=== PATIENT | female | born 1950 | race African-American/Black ===

== ENCOUNTER 2020-06-01 19:28 | Inpatient (IN) | payer MEDICARE, SELFPAY ==
--- NOTE | ~2020-06-01 | CT_ITS ---
EXAMINATION: CTA chest PE protocol EXAM DATE: 06/02/2020 18:51 INDICATION: Pleuritic pain with deep breathing . TECHNIQUE: Spiral CTA of the chest (pulmonary arteries) was performed with 100 cc Omnipaque 350 intr avenous contrast injection. Images were acquired during the pulmonary arterial phase. Coronal maxi mum intensity projection 3D-reconstructions were created by the technologist on dedicated workstation . Axial, coronal and sagittal reformatted images were reviewed. The dose-length product (DLP) for t his examination was 130.26 mGy-cm. The exposure was tailored according to patient size (auto mA exp osure control), and iterative reconstruction (ASIR) was used as additional dose reduction technique. Correlation is made to chest x-ray same date. FINDINGS: There are no pulmonary emboli in the 1st through 3rd order (central and interlobar) pulmon shahram arteries. Some loss of attenuation in the basilar segmental pulmonary arteries due to respirator y motion, but no intraluminal filling defects suspected. No thoracic aortic dissection. There is mo derate amount of patchy bilateral groundglass predominant airspace disease with linear regions of ate lectasis. Most likely acute infectious process. Recommend considering possibility of COVID pneumonia. Less likely acute possibilities include influenza, pulmonary edema or hemorrhage. Some chronic proc esses that can have this appearance include cryptogenic organizing pneumonia, desquamative interstiti al pneumonia, nonspecific interstitial pneumonia, drug toxicity, connective tissue disease. Please cl inically correlate and test as appropriate. There are no pleural or pericardial effusions. Tracheobronchial tree is patent. There is no media stinal, hilar or axillary lymphadenopathy. There is no pneumothorax. Heart normal in size. No e vidence of coronary arterial calcification. Fluid density liver lesions consistent with cysts. The bones are unremarkable. IMPRESSION: 1. Limited segmental evaluation, but no pulmonary emboli are suspected. 2. Moderate amount of patchy bilateral airspace disease suspicious for COVID pneumonia. Reviewed, dictated and finalized at location A. T PRESSER IMPRESSION: 1. Limited segmental evaluation, but no pulmonary emboli are suspected. 2. Moderate amount of patchy bilateral airspace disease suspicious for COVID p neumonia.
--- NOTE | ~2020-06-01 | XR_ITS ---
EXAMINATION: XR chest 1V portable EXAM DATE: 06/01/2020 20:30 INDICATION: Shortness of breath, nausea vomiting and diarrhea. TECHNIQUE: Portable AP frontal chest x-ray was obtained. There is no prior study for comparison. FINDINGS: Patchy bilateral midlung zone and lower lung zone ill-defined acute airspace disease. Most likely acute infectious process, recommend considering COVID pneumonia. The cardiomediastinal silhoue tte is prominent but magnified on this AP technique. There is no pneumothorax suspected. There are no pleural effusions. There are no osseous abnormalities identified. IMPRESSION: Moderate bilateral airspace disease likely pneumonia. Clinical correlation. Reviewed, dictated and finalized at location A. OR LINUX SYSTEMS ADMINISTRATOR IMPRESSION: Moderate bilateral airspace disease likely pneumonia. Clinical jamison elation.
[2020-06-01 19:38] VITALS: BP 184/91; PULSE 82; RESP 21; TEMP 37.2; O2SAT 96
[2020-06-01 19:43] VITALS: PULSE 80
--- NOTE | 2020-06-01 19:43 | ECG_ITS ---
Measurements Intervals [place] Rate: 79 P: 47 HI: 177 QRS: 22 QRSD: 81 T: 51 QT: 355 QTc: 409 Interpretive Statements SINUS RHYTHM VOLTAGE CRITERIA FOR LVH BASELINE WANDER- III, AVF, V3-V6 BORDERLINE ECG Electronically Signed On 06-02-2020 7:25:08 BUYER by Pillo Turner D.O.
--- NOTE | 2020-06-01 19:51 | ED.GENADULT ---
HPI - General Adult General Chief complaint: Shortness of Breath/Dyspnea Stated complaint: Low o2, cough, vomiting, body aches Time Seen by Provider: 06/01/20 19:39 History of Present Illness HPI narrative: Patient is 69-year-old female who presents to emergency department with chief complaint of nausea vomiting cough. Patient reports she has been around individuals who have had COVID-19 and reports she is had symptoms since last . Patient states symptoms are not improved by anything states that she feels weak and feels as though she is dehydrated. Patient reports symptoms are not improved by anything nor they worsened by anything Related Data Allergies Allergy/AdvReac Type Severity Reaction Status Date / Time No Known Allergies Allergy Verified 06/01/20 20:16 Review of Systems Review of Systems: Narrative: A 10 system review of systems was completed on the patient and is negative except for what is stated in the HPI. Nursing and ancillary documentation was reviewed. PMFSH Comments Patient has history of high blood pressure and high cholesterol Social history the patient denies illicit drug use Exam Narrative: Exam Narrative: GENERAL: Well-appearing, well-nourished, and in no acute distress. HEAD: Normocephalic, atraumatic. EYES: PERRLA and EOMI. ENT: Nares clear, no rhinorrhea or epistaxis. Mucous membranes moist. NECK: Supple. CHEST: Clear to auscultation. No respiratory distress. HEART: Regular rate and rhythm. No murmur heard. Normal peripheral pulses. ABDOMEN: Soft, nontender, nondistended, normal active bowel sounds. EXTREMITIES: Normal range of motion. No edema. SKIN: Warm, dry, no rash. NEURO: No focal deficits. Alert and oriented x3. PSYCH: Normal mood and affect. Course Course Emergency Course: Chest x-ray shows evidence of multifocal pneumonia Patient's ABG shows a pH of 7.46 and a PCO2 of 56.6 she has a measured saturation of 88.7. The patient is not on oxygen at home. Patient improves with about 1 L of nasal cannula oxygen. Vital Signs Vital signs: Vital Signs Temperature 37.2 C 06/01/20 19:38 Pulse Rate 82 06/01/20 19:38 Respiratory Rate 21 H 06/01/20 19:38 Blood Pressure 184/91 H 06/01/20 19:38 Pulse Oximetry 96 06/01/20 19:38 Temperature 36.2 C L 06/01/20 20:44 Pulse Rate 91 06/01/20 20:44 Respiratory Rate 18 06/01/20 20:44 Blood Pressure 168/87 H 06/01/20 20:44 Pulse Oximetry 95 06/01/20 20:44 Medical Decision Making Vital Signs Vital Signs: Vital Signs Temperature 37.2 C 06/01/20 19:38 Pulse Rate 82 06/01/20 19:38 Respiratory Rate 21 H 06/01/20 19:38 Blood Pressure 184/91 H 06/01/20 19:38 Pulse Oximetry 96 06/01/20 19:38 Temperature 36.2 C L 06/01/20 20:44 Pulse Rate 91 06/01/20 20:44 Respiratory Rate 18 06/01/20 20:44 Blood Pressure 168/87 H 06/01/20 20:44 Pulse Oximetry 95 06/01/20 20:44 Lab Data Result diagrams: 06/01/20 19:46 06/01/20 19:46 Labs: Lab Results 06/01/20 06/01/20 06/01/20 Range/Units 19:46 19:46 19:57 WBC 8.5 (4.5-10.0) K/mm3 RBC 4.08 L (4.2-5.4) M/mm3 Hgb 12.4 (12.0-15.0) g/dL Hct 38.3 (37.0-47.0) % MCV 93.9 (80-100) fl MCH 30.4 (26-34) pg MCHC 32.4 (32-36) g/dl RDW 13.7 (11.5-14.5) % Plt Count 410 H (150-375) k/mm3 MPV 9.9 (7.4-10.4) fl Immature Gran % (Auto) Not Reportable Neut % (Auto) Not Reportable Lymph % (Auto) Not Reportable [place] % (Auto) Not Reportable Eos % (Auto) Not Reportable Baso % (Auto) Not Reportable Lymph # (Auto) Not Reportable [place] # (Auto) Not Reportable Eos # (Auto) Not Reportable Baso # (Auto) Not Reportable Abs Immat Gran (auto) Not Reportable Absolute Neuts (auto) Not Reportable Absolute Nucleated RBC Not Reportable Total Counted 100 Neutrophils % (Manual) 65 (46-73) % Band Neutrophils %
[2020-06-01 19:53] LABS: Hematocrit 38.3 % (37.0-47.0); Hemoglobin 12.4 g/dL (12.0-15.0); Mean Corpuscular HGB Conc 32.4 g/dl (32-36); Mean Corpuscular Hemoglobin 30.4 pg (26-34); Mean Corpuscular Volume 93.9 fl (80-100); Mean Platelet Volume 9.9 fl (7.4-10.4); Platelet Count Result 410 k/mm3 (150-375); Red Blood Count 4.08 M/mm3 (4.2-5.4); Red Cell Distribution Width 13.7 % (11.5-14.5); White Blood Count 8.5 K/mm3 (4.5-10.0)
[2020-06-01 20:01] LABS: Band Neutrophils Percent 1 % (0-6); Eosinophils Absolute Manual 0.08 K/mm3 (0.02-0.5); Eosinophils Percent Manual 1 % (0-4); Lymphocytes Absolute Manual 2.46 K/mm3 (1.1-4.5); Monocytes Absolute Manual 0.34 K/mm3 (0.1-0.90); Monocytes Percent Manual 4 % (3-9); Neutrophils Absolute Manual 5.61 K/mm3 (1.7-7.2); Neutrophils Percent Manual 65 % (46-73); Total Cells Counted 100
[2020-06-01 20:02] LABS: Atypical Lymphocytes Present
[2020-06-01 20:05] LABS: Alanine Aminotransferase 28 U/L (4-35); Albumin Level 4.2 g/dL (3.5-5.1); Alkaline Phosphatase 78 U/L (38-126); Anion Gap 11 mmol/L (8-16); Aspartate Amino Transferase 52 U/L (14-36); Bilirubin,Total 0.5 mg/dL (0.2-1.3); Blood Urea Nitrogen 13 mg/dL (7-17); Calcium 9.9 mg/dL (8.4-10.2); Carbon Dioxide 30 mmol/L (22-30); Chloride 96 mmol/L (98-107); Estimated CRCL calculation 39 ml/min; Estimated Glomerular Filt Rate > 60; Glucose 123 mg/dL (65-105); Magnesium 2.1 mg/dL (1.6-2.3); Potassium 3.7 mmol/L (3.4-5.0); Sodium 137 mmol/L (137-145)
[2020-06-01 20:09] LABS: Base Excess ABG -0.1 mEq/l (+/-2.0); Fractional Inspired Oxygen 21 %; Oxygen Content ABG 15.6 %vol (16.0-22.0); Oxygen Saturation ABG 91.4 % (95.0-100.0); Oxyhemoglobin 88.7 % THb (90.0-100.0); PCO2 ABG 32.7 mmHg (35.0-45.0); PO2 ABG 56.6 mmHg (80.0-100.0); Total Hemoglobin 12.5 g/dL (12.0-18.0); pH ABG 7.465 (7.350-7.450)
[2020-06-01 20:10] LABS: Device ROOM AIR; Site Drawn LEFT BRACHIAL
[2020-06-01 20:14] LABS: Lactic Acid Reflex 1.5 mmol/L (0.7-2.1)
[2020-06-01] MEDS: ONDANSETRON INJ 4 MG/2 ML VIAL IV PUSH (20:16)
[2020-06-01 20:17] LABS: NT Pro B Type Natriuretic Pept 337 PG/ML (5-100); Troponin I < 0.012 ng/mL (0.000-0.034)
[2020-06-01] MEDS: SODIUM CHLORIDE 0.9% IV 1,000 ML 999 ML IV CONT (20:17)
[2020-06-01 20:44] VITALS: BP 168/87; PULSE 91; RESP 18; TEMP 36.2; O2SAT 95
--- NOTE | 2020-06-01 20:59 | PC.NURSE ---
telephone directory distributor driver taking patient to the bathroom to provided urine sample at this time.
[2020-06-01 21:20] LABS: Add Urine Microscopic? YES; Appearance Urine Clear (Clear); Bilirubin Urine Negative (Negative); Blood Urine Negative (Negative); Color Urine Yellow (Yellow); Glucose Urine UA Negative (Negative); Ketones Urine Negative (Negative); Leukocyte Esterase Ur Negative LEU/UL (Negative); Mucus Urine Moderate /lpf; Nitrate Urine Negative (Negative); Protein Urine 2+ mg/dL (Negative); RBC Urine 0-2 /hpf (0-2); Specific Grav Ur 1.021 (1.001-1.035); Squamous Epithelial Cell Urine Moderate /hpf (Few)
[2020-06-01 22:01] VITALS: BP 185/85; PULSE 78; RESP 26; TEMP 36.2; O2SAT 92
[2020-06-01 22:17] VITALS: BP 165/79; PULSE 88; RESP 20; O2SAT 93
[2020-06-01] MEDS: DEXAMETHASONE SOD PHOS INJ 4 MG/ML VIAL 6 MG IV PUSH (22:23)
--- NOTE | 2020-06-01 22:52 | PC.NURSE ---
This patient, Nunu Ureña, was admitted to 3 [facility] Surg Room 322-01. Patient/family oriented to hospital policies and general routines including ID bracelet, bed and alarms, visiting hours, pain management, procedures, bathroom and other care routines, personal items, smoking policy, room service/diet, and visiting hours. Information on how to activate the Rapid Response Team has been discussed. Patient/Family are encouraged to report perceived risks to care and to ask questions if they do not understand what they are told or what they should do.
[2020-06-01] MEDS: SODIUM CHLORIDE 0.9% IV 1,000 ML 125 ML IV CONT (23:24)
[2020-06-01 23:35] VITALS: BP 156/70; PULSE 85; RESP 20; TEMP 37.9; O2SAT 93
[2020-06-02] VITALS (10 sets, daily range): BP systolic 138–187; BP diastolic 69–92; PULSE 73–89; RESP 16–20; TEMP 35.8–36.9; O2SAT 90–97
--- NOTE | 2020-06-02 01:43 | PM.IMHP ---
H&P: HPI History of Present Illness Date/Time: 06/02/20 01:43 Chief Complaint: nausea and vomiting Narrative: This is a pleasant 69 year old female with known history of HTN and hyperlipidemia who presented to the hospital with a complaint of nausea, vomiting and not feeling well since this past . She reported that her daughter had tested positive for COVID-19. She has had intermittent fevers and chills. She denies any chest pain, sore throat, abdominal pain, dysuria, hematuria, or rectal bleeding. Associated symptoms include generalized weakness. ABG obtained in the ER tonight revealed hypoxemic respiratory failure. CXR showed moderate bilateral airspace disease likely pneumonia. The patient was swabbed for COVID-19 and admitted to the medical floor. She was treated with IV fluids and dexamethasone in the ER. On my encounter with the patient she is on room air and saturating 97%. She is nontoxic appearing and in no acute distress. She has no other complaints at this time. Review of Systems Review of Systems: All systems reviewed & are unremarkable except as noted in HPI and below PMFSH Past Medical History Medical History HTN (hypertension) with goal to be determined Hyperlipidemia Family History Family History Mother Acute myocardial infarction Social History Social History Smoking status: Never smoker Alcohol intake: former Substance use: never Gender identity (if verbalized by the patient): Female Spiritual care concerns: No Comments Past surgical history is reviewed and noncontributory. Meds Home Medications and Allergies Home Medications Medication Instructions Recorded Confirmed Type atorvastatin 80 mg PO HS 06/01/20 06/01/20 History cholecalciferol (vitamin D3) 50 mcg PO DAILY 06/01/20 06/01/20 History [Vitamin D3] duloxetine 60 mg PO DAILY 06/01/20 06/01/20 History gabapentin 100 mg PO TID 06/01/20 06/01/20 History hydroxyzine HCl 25 mg PO BID PRN 06/01/20 06/01/20 History metoprolol tartrate 25 mg PO BID 06/01/20 06/01/20 History [id number] oil [[place] 3] 1 cap PO DAILY 06/01/20 06/01/20 History Allergies Allergy/AdvReac Type Severity Reaction Status Date / Time No Known Allergies Allergy Verified 06/02/20 06:03 Vital Signs Vital Signs - 24 hr 06/01/20 19:38 06/01/20 19:43 06/01/20 20:44 Temperature 37.2 C 36.2 C L Pulse Rate 82 80 91 Respiratory Rate 21 H 18 Blood Pressure 184/91 H 168/87 H Pulse Oximetry 96 95 06/01/20 22:01 06/01/20 22:17 06/01/20 23:35 Temperature 36.2 C L 37.9 C H Pulse Rate 78 88 85 Respiratory Rate 26 H 20 20 Blood Pressure 185/85 H 165/79 H 156/70 H Pulse Oximetry 92 93 93 06/02/20 00:00 Temperature Pulse Rate 84 Respiratory Rate Blood Pressure Pulse Oximetry Exam Const: General: cooperative, ill appearing, tired appearing and other (febrile to touch++ ) Nutritional Appearance: well nourished Orientation/consciousness: patient oriented x3 HENMT: Head: normal to inspection General nose exam: Normal external nose present Face and sinus: normal facial exam Mouth: Yes Normal oral and palatal mucosa present and Yes oropharynx normal Eyes: Pupils: Equal, round and reactive pupils present EOM: EOMs intact bilaterally Neck: Neck: supple and no JVD Thyroid: thyroid normal Lymphatic: lymphadenopathy not noted Resp: Effort & Inspection: normal respiratory effort Auscultation: crackles (bibasilar++ ) bilateral and diminished lung sounds Cardio: Rate: regular rate Rhythm: regular rhythm Heart sounds: no murmurs GI: Inspection: normal to inspection Auscultation: normal bowel sounds Skin: General skin exam: normal color and no rashes or lesions noted Neuro: General: patient oriented x3 Cranial nerves: Yes CN's II-XII intac
[2020-06-02] MEDS: ALBUTEROL SULFATE (*SP) AEROSOL 1 PUFF 2 PUFF INHALATION ×4 (02:47→19:56)
[2020-06-02] MEDS: LABETALOL HCL INJ 100 MG/20 ML VIAL 10 MG IV PUSH (06:29)
[2020-06-02 07:01] LABS: Hematocrit 35.7 % (37.0-47.0); Hemoglobin 11.9 g/dL (12.0-15.0); Mean Corpuscular HGB Conc 33.3 g/dl (32-36); Mean Corpuscular Hemoglobin 30.7 pg (26-34); Mean Corpuscular Volume 92.2 fl (80-100); Mean Platelet Volume 10.1 fl (7.4-10.4); Platelet Count Result 413 k/mm3 (150-375); Red Blood Count 3.87 M/mm3 (4.2-5.4); Red Cell Distribution Width 13.7 % (11.5-14.5); White Blood Count 8.1 K/mm3 (4.5-10.0)
[2020-06-02 07:08] LABS: Anion Gap 9 mmol/L (8-16); Blood Urea Nitrogen 13 mg/dL (7-17); Calcium 9.4 mg/dL (8.4-10.2); Carbon Dioxide 25 mmol/L (22-30); Chloride 102 mmol/L (98-107); Estimated CRCL calculation 45 ml/min; Estimated Glomerular Filt Rate > 60; Glucose 142 mg/dL (65-105); Magnesium 2.1 mg/dL (1.6-2.3); Potassium 4.4 mmol/L (3.4-5.0); Sodium 136 mmol/L (137-145)
[2020-06-02 07:59] LABS: Atypical Lymphocytes Present; Band Neutrophils Percent 3 % (0-6); Lymphocytes Absolute Manual 1.29 K/mm3 (1.1-4.5); Monocytes Absolute Manual 0.08 K/mm3 (0.1-0.90); Monocytes Percent Manual 1 % (3-9); Neutrophils Absolute Manual 6.72 K/mm3 (1.7-7.2); Neutrophils Percent Manual 80 % (46-73); Platelet Estimate Adequate (Adequate); Total Cells Counted 100
[2020-06-02] MEDS: DULoxetine HCL 60 MG CAPSULE.DR PO (08:30)
[2020-06-02] MEDS: CHOLECALCIFEROL 1,000 UNITS TABLET 2000 UNITS PO (08:30)
[2020-06-02] MEDS: amLODIPine BESYLATE 5 MG TABLET PO (08:30)
[2020-06-02] MEDS: ENOXAPARIN 40 MG/0.4 ML SYRINGE SUB-Q ×2 (08:31→19:55)
[2020-06-02] MEDS: METOPROLOL TARTRATE 25 MG TABLET PO ×2 (08:31→19:56)
[2020-06-02] MEDS: GABAPENTIN 100 MG CAPSULE PO ×3 (11:09→17:07)
--- NOTE | 2020-06-02 12:18 | PM.IMPN ---
Progress Note: A&P Assessment and Plan (1) Acute respiratory failure with hypoxemia: Code(s): J96.01 - Acute respiratory failure with hypoxia Status: Resolved Assessment and Plan: Resolved. CXR did show moderate bilateral airspace disease, likely PNA. She has known COVID-19 positive contacts. She is on room air and has not required oxygen since admission to the hospital. pO2 was low on ABG which is likely secondary to viral pneumonia. COVID-19 testing was ordered and pending. Dexamethasone is not indicated as she is not hypoxic. She does have pleuritic pain. Order chest CTA to r/o PE given pleuritic pain Await results of COVID-19 testing Continue supplemental oxygen Continue supportive care RT assess and treat Sputum culture, pneumococcal urine antigen ordered and pending Continue to monitor (2) Suspected 2019 novel coronavirus infection: Code(s): Z20.828 - Contact with and (suspected) exposure to other viral communicable diseases Status: Acute Assessment and Plan: SARS-CoV-2 testing was ordered and pending. Continue droplet isolation Continue supportive care COVID-19 results pending (3) Nausea and vomiting: Qualifiers: Vomiting type: unspecified Vomiting Intractability: non-intractable Qualified Code(s): R11.2 - Nausea with vomiting, unspecified Code(s): R11.2 - Nausea with vomiting, unspecified Status: Acute Assessment and Plan: Resolved. Likely secondary to viral syndrome. Continue antiemetics as needed (4) Hyperlipidemia: Qualifiers: Hyperlipidemia type: unspecified Qualified Code(s): E78.5 - Hyperlipidemia, unspecified Code(s): E78.5 - Hyperlipidemia, unspecified Status: Chronic Assessment and Plan: LFTs reviewed and AST only mildly elevated. Continue atorvastatin PO (5) HTN (hypertension) with goal to be determined: Code(s): I10 - Essential (primary) hypertension Status: Chronic Assessment and Plan: Blood pressures were elevated. She was on IV fluids which were discontinued. Continue metoprolol Amlodipine was added Continue to monitor and adjust treatment as necessary (6) Pleuritic pain: Code(s): R07.81 - Pleurodynia Status: Acute Assessment and Plan: She is having discomfort with deep inspiration secondary to pneumonia. Will order chest CTA to r/o PE Subjective Date/time seen: 06/02/20 12:18 Mrs. Ureña is a 69 y.o. female with PMH significant for hyperlipidemia and hypertension who is seen in follow-up for suspected viral pneumonia. COVID-19 testing is pending. Nausea and vomiting have resolved. She tolerated her breakfast without any recurrent symptoms. She still notes some generalized weakness. She has occasional dry cough. She reports no chest pain or palpitations. She does exhibit some pleuritic discomfort when she is taking deep breaths while I auscultate her lungs. She has no headaches, dizziness, or lightheadedness. She has no calf pain or leg swelling. Review of Systems Review of Systems: All systems reviewed & are unremarkable except as noted in HPI and below Exam Narrative: Exam Narrative: General: Very pleasant, well-developed and thin 69 y.o. female who is lying semi-recumbent in bed in no acute distress. HEENMT: Normocephalic and atraumatic. Sclera anicteric. EOMI. Oral mucosa moist. Neck: Supple. Cardiac: Regular rate and rhythm. S1 and S2 normal. No murmur appreciated. Lungs: Effort normal. Lungs have inspiratory rales, most prominent at the right lower lung base. Pt has discomfort with deep breathing. Chest: No chest wall tenderness. Abdomen: Bowel sounds are normoactive. Abdomen is soft, non-distended, and non-tender. Extremities: No lower extremity edema or calf tenderness. DP and PT 2+. Neurological: Alert and oriented x4. CN II-XII intact. Upper and lower extremity strength in
[2020-06-02] MEDS: ATORVASTATIN 40 MG TABLET 80 MG PO (19:56)
[2020-06-03] VITALS: BP 168/73; PULSE 61; PULSE 67; RESP 18; TEMP 36.9; O2SAT 92
[2020-06-03] MEDS: ALBUTEROL SULFATE (*SP) AEROSOL 1 PUFF 2 PUFF INHALATION ×4 (02:00→16:17)
[2020-06-03 04:00] VITALS: BP 165/74; PULSE 59; PULSE 62; RESP 18; TEMP 37.1; O2SAT 92
[2020-06-03 07:14] LABS: Basophils Percent Auto 0.2 % (0.2-1.2); Hematocrit 33.3 % (37.0-47.0); Immature Granulocyte Absolute 0.29 K/mm3 (0.00-0.031); Immature Granulocyte Percent A 3.3 % (0-0.5); Lymphocytes Absolute Auto 1.75 K/mm3 (0.9-3.2); Lymphocytes Percent Auto 19.6 % (18.3-44.2); Mean Corpuscular Hemoglobin 30.1 pg (26-34); Monocytes Absolute Auto 0.5 K/mm3 (0.1-0.6); Monocytes Percent Auto 5.5 % (2.6-8.5); Neutrophils Absolute Auto 6.4 K/mm3 (1.3-6.7); Neutrophils Percent Auto 71.4 % (45.5-73.1); Platelet Count Result 498 k/mm3 (150-375); Red Blood Count 3.66 M/mm3 (4.2-5.4); Red Cell Distribution Width 13.6 % (11.5-14.5); White Blood Count 8.9 K/mm3 (4.5-10.0)
[2020-06-03 07:29] LABS: Alanine Aminotransferase 64 U/L (4-35); Albumin Level 3.4 g/dL (3.5-5.1); Alkaline Phosphatase 74 U/L (38-126); Anion Gap 5 mmol/L (8-16); Aspartate Amino Transferase 97 U/L (14-36); Bilirubin,Total 0.3 mg/dL (0.2-1.3); Blood Urea Nitrogen 17 mg/dL (7-17); CRP 8.2 mg/dL (<1.0); Calcium 9.4 mg/dL (8.4-10.2); Carbon Dioxide 29 mmol/L (22-30); Chloride 105 mmol/L (98-107); Creatine Kinase 26 U/L (30-135); Estimated CRCL calculation 40 ml/min; Estimated Glomerular Filt Rate > 60; Glucose 114 mg/dL (65-105); Magnesium 2.3 mg/dL (1.6-2.3); Potassium 4.5 mmol/L (3.4-5.0); Sodium 139 mmol/L (137-145)
[2020-06-03 08:00] VITALS: BP 156/78; PULSE 67; PULSE 69; RESP 18; TEMP 36.3; O2SAT 93
[2020-06-03] MEDS: CHOLECALCIFEROL 1,000 UNITS TABLET 2000 UNITS PO (09:31)
[2020-06-03] MEDS: METOPROLOL TARTRATE 25 MG TABLET PO (09:31)
[2020-06-03] MEDS: GABAPENTIN 100 MG CAPSULE PO ×2 (09:31→16:17)
[2020-06-03] MEDS: DULoxetine HCL 60 MG CAPSULE.DR PO (09:31)
[2020-06-03] MEDS: ENOXAPARIN 40 MG/0.4 ML SYRINGE SUB-Q (09:32)
[2020-06-03] MEDS: amLODIPine BESYLATE 5 MG TABLET PO (09:32)
[2020-06-03 12:00] VITALS: BP 136/70; PULSE 66; RESP 18; TEMP 36.3; O2SAT 93
--- NOTE | 2020-06-03 14:36 | PM.DS ---
DS: Admitting Diagnosis Admitting Diagnosis Admitting Diagnosis: Viral syndrome DS: Discharge Diagnosis Discharge Diagnosis (1) Acute respiratory failure with hypoxemia: Code(s): J96.01 - Acute respiratory failure with hypoxia Status: Resolved Assessment and Plan: Resolved. The patient did not require supplemental oxygen during her stay. Chest CTA was negative for pulmonary embolism. (2) Suspected 2019 novel coronavirus infection: Code(s): Z20.828 - Contact with and (suspected) exposure to other viral communicable diseases Status: Acute Assessment and Plan: Test results were available after discharge and I did call to notify her. (3) Nausea and vomiting: Qualifiers: Vomiting type: unspecified Vomiting Intractability: non-intractable Qualified Code(s): R11.2 - Nausea with vomiting, unspecified Code(s): R11.2 - Nausea with vomiting, unspecified Status: Resolved Assessment and Plan: Resolved. Likely secondary to viral syndrome. Antiemetics were given as needed. (4) Hyperlipidemia: Qualifiers: Hyperlipidemia type: unspecified Qualified Code(s): E78.5 - Hyperlipidemia, unspecified Code(s): E78.5 - Hyperlipidemia, unspecified Status: Chronic Assessment and Plan: LFTs only mildly elevated. Atorvastatin was continued. (5) HTN (hypertension) with goal to be determined: Code(s): I10 - Essential (primary) hypertension Status: Chronic Assessment and Plan: Blood pressures were elevated above target. Metoprolol was continued and amlodipine was added. She will need to monitor BP closely and follow-up with her PCP. DS: Summary Hospital Course Reason for hospitalization: Nausea, vomiting, and generalized weakness Hospital Course: Mrs. Gaston is a 69 y.o. female with PMH significant for hypertension and hyperlipidemia who presented to the emergency department 06/01/20 for the evaluation of nausea, vomiting, cough, and generalized weakness. She reported that she was around her daughter who tested positive for COVID-19. Oxygen saturation on arrival to the ED was 96%. Initial workup included ABG with hypoxemic respiratory failure and CXR showed patchy mid and lower bilateral lung infiltrates. She was admitted to the hospitalist service under isolation and tested for COVID-19. She did not require oxygen while inpatient and was stable on room air throughout her hospital stay, thus dexamethasone was not indicated. Her nausea and vomiting resolved and she was tolerating PO intake well. She did have pleuritic discomfort so chest CTA was ordered and negative for pulmonary embolism. Blood pressures were elevated and amlodipine was initiated. There was a delay in her COVID test results. She remained on room air and she felt much better overall. I discussed that she could discharge and I would call with her COVID-19 results. She was discharged in hemodynamically stable condition on the afternoon of 06/03/20. I did prescribe axithromycin as results of COVID testing were not back yet. I called her the following day after discharge to advise that her COVID test was negative and she does not need to take antibiotics. I discussed worrisome symptoms which would warrant return to the emergency department. Status at Discharge Functional status at discharge: independent ambulation Overall status at discharge: patient is back to baseline Time Spent with Patient Time attestation: Total time spent providing and/or coordinating discharge services: 40 minutes Exam Narrative: Exam Narrative: Vitals at presentation: Temp Pulse Resp BP Pulse Ox 98.9 F 82 21 H 184/91 H 96 06/01/20 19:38 06/01/20 19:38 06/01/20 19:38 06/01/20 19:38 06/01/20 19:38 Vitals at discharge: Temp Pulse
[2020-06-03 15:58] LABS: Hepatitis B Surface Antigen Negative (Negative)
[2020-06-03 16:04] LABS: HAV RESULT Negative (Negative); Hepatitis B Core IgM Result Negative (Negative)
[2020-06-03 16:15] LABS: Hepatitis C Virus Antibody Negative (Negative)
[2020-06-04 16:54] LABS: SARS-CoV-2 RNA PCR Positive
--- NOTE | 2020-06-05 13:52 | PC.NURSE ---
Attempted to call patient with COVID + test. No answer and no calls being accepted at this time.
--- NOTE | 2020-06-06 09:55 | PC.NURSE ---
Attempted to call patient. No answer.
== END 2020-06-03 17:00 | disposition home or self-care (01) | DRG 177 ==
LOC: ANHED 21:20 → ANH3MEDSUR 06-02 02:52
PROVIDERS: Admitting Provider Family Medicine; Emergency Provider Emergency Medicine; Visit Provider Physician Assistant
DX: U07.1 COVID-19 (principal); J12.89 Other viral pneumonia; J96.01 Acute respiratory failure with hypoxia; I10 Essential (primary) hypertension; E78.5 Hyperlipidemia, unspecified
CPT/HCPCS: 36415; 36600; 71045; 71275; 80048; 80053; 80074; 81001; 82550; 82728; 82805; 83605; 83735; 83880; 84484; 85025; 86140; 87040; 87086; 87635; 93005; 94640; 96361; 96374; 99285; A9270; C9803; J1100; J1650; J2405; J7030; Q9967; U0003